=== PATIENT | female | born 1955 | race Caucasian/White ===

== ENCOUNTER 2023-12-15 00:34 | Emergency (ER) | payer MEDICARE ==
[2023-12-15] MEDS ORDERED: Ondansetron ODT 4 MG TAB ONE (01:03)
[2023-12-15] MEDS ORDERED: HYDROcodone/Acetaminophen 5/325 mg Tablet ONE (01:03)
== END 2023-12-15 03:56 | disposition home or self-care (01) ==
LOC: CSHERS 00:34
DX: L03.90 Cellulitis, unspecified (principal); I10 Essential (primary) hypertension; F17.210 Nicotine dependence, cigarettes, uncomplicated
CPT/HCPCS: 99283; Q0162

== ENCOUNTER 2024-02-01 04:42 | Inpatient (IN) | payer OTHER ==
[2024-02-01 06:48] VITALS: BMI 32.3
[2024-02-01] MEDS: Lactated Ringer's 1,000 ML IV SCH (08:16)
[2024-02-01] MEDS: Multivitamin W/ Minerals 1 TAB PO SCH (10:53)
[2024-02-01] MEDS: Flecainide 50 MG TAB PO SCH (10:53)
[2024-02-01] MEDS: Pantoprazole DR 40 MG TAB PO SCH (10:53)
[2024-02-01] MEDS: Apixaban 5 MG TAB PO SCH (10:54)
[2024-02-01] MEDS: Cefepime 2 GM in Sodium Chloride 0.9% 100 ML IVPB SCH (10:54)
[2024-02-01] MEDS: Polyethylene Glycol 3350 17 GM Packet PO SCH (10:56)
[2024-02-01] MEDS: Morphine 4 MG/ML VIAL SLOW IVP PRN (11:31)
[2024-02-01 12:11] VITALS: BMI 32.3
[2024-02-01] MEDS: Promethazine HCl 12.5 MG in Sodium Chloride 0.9% 50 ML IVPB PRN (20:13)
[2024-02-02] MEDS: Ondansetron PF 4 MG/2 ML Vial IVP PRN (05:04)
[2024-02-02 05:22] LABS: #Basophils 0.01 10x3/uL (0.0-0.2); #Eosinphils 0.12 10x3/uL (0.0-0.5); #Neutrophils 2.32 10x3/uL (1.5-8.4); %Basophils 0.3 % (0.0-2.0); %Eosinophils 3.1 % (0.0-6.0); %Lymphocytes 28.3 % (18.0-47.0); %Monocytes 7.8 % (0.0-10.0); %Neutrophils 60.2 % (40.0-75.0); Anion Gap 17 mmol/L (10-20); BUN (Urea Nitrogen) 15 mg/dL (9.8-20.1); Calc. Creatinine Clearance 74 mL/min (70-130); Carbon Dioxide 25 mmol/L (23-31); Chloride 100 mmol/L (98-107); Estimated GFR 59; Glucose 68 mg/dL (80-115); Hematocrit 31.6 % (34.9-44.5); Hemoglobin 10.8 g/dL (12.0-15.5); Mean Corpuscular HGB CONC 34.2 g/dL (32.0-36.0); Mean Corpuscular Hemoglobin 32.6 pg (27.0-33.0); Mean Corpuscular Volume 95.5 fL (81.6-98.3); Mean Platelet Volume 10.2 fL (7.4-10.4); Platelet Count 153 10x3/uL (150-450); Potassium 3.4 mmol/L (3.5-5.1); RBC Distribution Width 17.1 % (11.5-14.5); Red Blood Cell (RBC) Count 3.31 10x6/uL (3.90-5.03); Sodium 139 mmol/L (136-145); White Blood Cell (WBC) Count 3.9 10x3/uL (3.5-10.5)
[2024-02-02] MEDS: Dextrose 5%-Lactated Ringers 1,000 ML IV SCH (05:54)
[2024-02-02 06:16] LABS: Calcium 5.8 mg/dL (7.8-10.44); Magnesium Less than 0.6 mg/dL (1.6-2.6)
[2024-02-02] MEDS: Potassium Chloride 20 MEQ TAB PO SCH (06:38)
[2024-02-02] MEDS: Calcium Gluc 4.6 MEQ/10 ML (100 MG/ML) SLOW IVP SCH (06:38)
[2024-02-02] MEDS: Magnesium 2 GM/50 ML(in water) 2 GM in Premix 1 BAG IVPB SCH ×3 (06:39→13:13)
[2024-02-02 10:19] LABS: Albumin 2.4 g/dL (3.4-4.8); Anion Gap 17 mmol/L (10-20); BUN (Urea Nitrogen) 14 mg/dL (9.8-20.1); Calc. Creatinine Clearance 67 mL/min (70-130); Carbon Dioxide 26 mmol/L (23-31); Chloride 100 mmol/L (98-107); Estimated GFR 52; Glucose 72 mg/dL (80-115); Potassium 3.1 mmol/L (3.5-5.1); Sodium 140 mmol/L (136-145)
[2024-02-02 10:26] LABS: Calcium 6.3 mg/dL (7.8-10.44)
[2024-02-02] MEDS: Polyethylene Glycol 3350 17 GM Packet PO SCH (10:40)
[2024-02-02] MEDS: Calcium Gluconate 4.6 MEQ in Sodium Chloride 0.9% 100 ML IVPB SCH (13:08)
[2024-02-02 15:51] LABS: Anion Gap 17 mmol/L (10-20); BUN (Urea Nitrogen) 13 mg/dL (9.8-20.1); Calc. Creatinine Clearance 70 mL/min (70-130); Carbon Dioxide 24 mmol/L (23-31); Chloride 99 mmol/L (98-107); Estimated GFR 55; Glucose 90 mg/dL (80-115); Magnesium 2.5 mg/dL (1.6-2.6); Sodium 137 mmol/L (136-145)
[2024-02-02 16:59] LABS: Calcium 6.7 mg/dL (7.8-10.44)
[2024-02-03] MEDS: Acetaminophen 325 MG TAB PO PRN (00:06)
[2024-02-03 05:09] LABS: #Basophils 0.02 10x3/uL (0.0-0.2); #Eosinphils 0.11 10x3/uL (0.0-0.5); #Monocytes 0.27 10x3/uL (0.0-1.1); #Neutrophils 3.68 10x3/uL (1.5-8.4); %Basophils 0.4 % (0.0-2.0); %Eosinophils 2.3 % (0.0-6.0); %Lymphocytes 13.7 % (18.0-47.0); %Monocytes 5.7 % (0.0-10.0); %Neutrophils 77.7 % (40.0-75.0); Hematocrit 35.1 % (34.9-44.5); Hemoglobin 11.9 g/dL (12.0-15.5); Mean Corpuscular HGB CONC 33.9 g/dL (32.0-36.0); Mean Corpuscular Hemoglobin 32.7 pg (27.0-33.0); Mean Corpuscular Volume 96.4 fL (81.6-98.3); Platelet Count 145 10x3/uL (150-450); RBC Distribution Width 16.6 % (11.5-14.5); Red Blood Cell (RBC) Count 3.64 10x6/uL (3.90-5.03); White Blood Cell (WBC) Count 4.7 10x3/uL (3.5-10.5)
[2024-02-03 05:18] LABS: ALT (SGPT) 37 U/L (8-55); AST (SGOT) 50 U/L (5-34); Albumin 2.5 g/dL (3.4-4.8); Alkaline Phosphatase 114 U/L (40-110); Anion Gap 14 mmol/L (10-20); BUN (Urea Nitrogen) 12 mg/dL (9.8-20.1); Bilirubin, Total 1.2 mg/dL (0.2-1.2); Calc. Creatinine Clearance 81 mL/min (70-130); Carbon Dioxide 27 mmol/L (23-31); Chloride 99 mmol/L (98-107); Estimated GFR 66; Globulin 3.3 g/dL (2.4-3.5); Glucose 84 mg/dL (80-115); Phosphorus 3.3 mg/dL (2.3-4.7); Potassium 3.3 mmol/L (3.5-5.1); Protein, Total 5.8 g/dL (5.8-8.1); Sodium 137 mmol/L (136-145)
[2024-02-03 05:25] LABS: Calcium 6.8 mg/dL (7.8-10.44); Critical Call Chemistry OS.YZ@0353
[2024-02-03] MEDS: Potassium Chloride 20 MEQ TAB PO SCH (08:35)
[2024-02-03 08:54] VITALS: BP 129/67; TEMP 99.3
== END 2024-02-03 12:32 | disposition home or self-care (01) | DRG 872 ==
LOC: CSHTELE 04:42
PROVIDERS: ADMIT Student in an Organized Health Care Education/Training Program; ATTEND Family Medicine
DX: A41.9 Sepsis, unspecified organism (principal); E87.20 Acidosis, unspecified; N39.0 Urinary tract infection, site not specified; I82.402 Acute embolism and thrombosis of unspecified deep veins of left lower extremity; R65.20 Severe sepsis without septic shock; E86.0 Dehydration; R53.81 Other malaise; E87.8 Other disorders of electrolyte and fluid balance, not elsewhere classified; N28.89 Other specified disorders of kidney and ureter; E88.09 Other disorders of plasma-protein metabolism, not elsewhere classified; I10 Essential (primary) hypertension; I48.0 Paroxysmal atrial fibrillation; Z93.2 Ileostomy status; Z91.018 Allergy to other foods; Z79.01 Long term (current) use of anticoagulants; Z79.899 Other long term (current) drug therapy; Z98.890 Other specified postprocedural states
CPT/HCPCS: 36415; 74018; 80048; 80053; 82040; 82330; 83735; 84100; 85025; 86140; 87081; 87086; 87324; 87449; 97139; J0612; J0692; J2272; J2405; J2550; J3475; J7120

== ENCOUNTER 2024-05-15 16:27 | Inpatient (IN) | payer OTHER, MEDICAID ==
[2024-05-15 18:00] LABS: #Basophils 0.01 10x3/uL (0.0-0.2); #Eosinophils 0.04 10x3/uL (0.0-0.5); #Monocytes 0.68 10x3/uL (0.0-1.1); %Basophils 0.1 % (0.0-2.0); %Eosinophils 0.5 % (0.0-6.0); %Lymphocytes 16.4 % (18.0-47.0); %Monocytes 8.3 % (0.0-10.0); %Neutrophils 74.6 % (40.0-75.0); Hematocrit 36.2 % (34.9-44.5); Hemoglobin 11.7 g/dL (12.0-15.5); Mean Corpuscular HGB CONC 32.3 g/dL (32.0-36.0); Mean Corpuscular Hemoglobin 27.8 pg (27.0-33.0); Mean Platelet Volume 10.7 fL (7.4-10.4); Platelet Count 182 10x3/uL (150-450); RBC Distribution Width 15.2 % (11.5-14.5); Red Blood Cell (RBC) Count 4.21 10x6/uL (3.90-5.03); White Blood Cell (WBC) Count 8.2 10x3/uL (3.5-10.5)
[2024-05-15 18:07] LABS: ALT (SGPT) 59 U/L (8-55); AST (SGOT) 56 U/L (5-34); Alkaline Phosphatase 106 U/L (40-110); BUN (Urea Nitrogen) 90 mg/dL (9.8-20.1); Bilirubin, Total 1.1 mg/dL (0.2-1.2); Calc. Creatinine Clearance 0 mL/min (70-130); Calcium 9.6 mg/dL (7.8-10.44); Estimated GFR 45; Globulin 5.2 g/dL (2.4-3.5); Glucose 135 mg/dL (80-115); Protein, Total 8.2 g/dL (5.8-8.1)
[2024-05-15 18:10] LABS: Troponin I 0.039 ng/mL (< 0.028)
[2024-05-15 18:11] LABS: Carbon Dioxide Greater than 37 mmol/L (23-31); Chloride 77 mmol/L (98-107); Critical Call Chemistry SJOS.OD AT 1809; Potassium 2.4 mmol/L (3.5-5.1); Sodium 132 mmol/L (136-145)
[2024-05-15 18:14] LABS: Anion Gap 25 mmol/L (10-20)
[2024-05-15] MEDS ORDERED: Potassium Chloride 20 MEQ TAB ONE (18:23)
[2024-05-15] MEDS ORDERED: Morphine 4 MG/ML VIAL ONE (18:33)
[2024-05-15 18:53] LABS: Magnesium 2.6 mg/dL (1.6-2.6)
[2024-05-15] MEDS ORDERED: Acetaminophen 650 MG Suppository PR PRN (19:08)
[2024-05-15] MEDS: Sodium Chloride 0.9% 1,000 ML IV SCH (20:00)
[2024-05-15] MEDS ORDERED: D5 1/2 NS w/20 mEq KCL 1,000 ML ONE (20:45)
[2024-05-15] MEDS: Acetaminophen 325 MG TAB PO PRN (21:00)
[2024-05-15] MEDS ORDERED: Acetaminophen 325 MG TAB ONE (21:06)
[2024-05-15 22:32] LABS: Troponin I 0.022 ng/mL (< 0.028)
[2024-05-15] MEDS: Cholestyramine/Aspartame 4 gm Packet PO SCH (23:15)
[2024-05-16] MEDS ORDERED: Diphenoxylate HCl/Atropine Tablet ONE ×4 (00:46→15:37)
[2024-05-16] MEDS: Diphenoxylate HCl/Atropine Tablet PO SCH ×2 (00:50→21:40)
[2024-05-16] MEDS ORDERED: traMADol HCl 50 MG TAB ONE ×2 (01:49→09:38)
[2024-05-16] MEDS: traMADol HCl 50 MG TAB PO PRN (01:59)
[2024-05-16 03:45] LABS: Platelet Count 122 10x3/uL (150-450)
[2024-05-16 03:46] LABS: #Basophils 0.02 10x3/uL (0.0-0.2); #Eosinophils 0.04 10x3/uL (0.0-0.5); #Monocytes 0.41 10x3/uL (0.0-1.1); %Basophils 0.4 % (0.0-2.0); %Eosinophils 0.9 % (0.0-6.0); %Lymphocytes 18.6 % (18.0-47.0); %Monocytes 9.1 % (0.0-10.0); %Neutrophils 70.8 % (40.0-75.0); Hematocrit 25.5 % (34.9-44.5); Hemoglobin 8.4 g/dL (12.0-15.5); Mean Corpuscular HGB CONC 32.9 g/dL (32.0-36.0); Mean Corpuscular Hemoglobin 29.1 pg (27.0-33.0); Mean Corpuscular Volume 88.2 fL (81.6-98.3); Mean Platelet Volume 10.4 fL (7.4-10.4); RBC Distribution Width 15.4 % (11.5-14.5); Red Blood Cell (RBC) Count 2.89 10x6/uL (3.90-5.03); White Blood Cell (WBC) Count 4.5 10x3/uL (3.5-10.5)
[2024-05-16 04:00] LABS: Troponin I 0.024 ng/mL (< 0.028)
[2024-05-16 04:17] LABS: ALT (SGPT) 42 U/L (8-55); AST (SGOT) 41 U/L (5-34); Albumin 2.1 g/dL (3.4-4.8); Alkaline Phosphatase 81 U/L (40-110); Anion Gap 12 mmol/L (10-20); BUN (Urea Nitrogen) 63 mg/dL (9.8-20.1); Bilirubin, Total 0.7 mg/dL (0.2-1.2); Calc. Creatinine Clearance 0 mL/min (70-130); Calcium 7.4 mg/dL (7.8-10.44); Carbon Dioxide 33 mmol/L (23-31); Chloride 88 mmol/L (98-107); Estimated GFR 69; Globulin 3.4 g/dL (2.4-3.5); Glucose 260 mg/dL (80-115); Magnesium 1.9 mg/dL (1.6-2.6); Phosphorus 2.5 mg/dL (2.3-4.7); Potassium 2.8 mmol/L (3.5-5.1); Protein, Total 5.5 g/dL (5.8-8.1); Sodium 130 mmol/L (136-145)
[2024-05-16] MEDS ORDERED: Electrolyte Replacement Protocol 1 EACH FS SCH (08:45)
[2024-05-16] MEDS ORDERED: Aspirin Chewable 81 MG TAB ONE (08:57)
[2024-05-16] MEDS ORDERED: Apixaban 5 MG TAB ONE (08:58)
[2024-05-16] MEDS ORDERED: Loperamide HCl 2 MG CAP ONE (08:58)
[2024-05-16] MEDS ORDERED: Potassium Bicarbonate/Cit Ac 20 MEQ TAB ONE ×2 (08:58→15:36)
[2024-05-16] MEDS ORDERED: Pantoprazole 40 MG VIAL ONE (08:59)
[2024-05-16] MEDS ORDERED: Amiodarone 200 MG TAB ONE (08:59)
[2024-05-16] MEDS ORDERED: Magnesium 2 GM/50 ML BAG (IN WATER) ONE (08:59)
[2024-05-16] MEDS ORDERED: Acetaminophen 500 MG TAB ONE (09:23)
[2024-05-16] MEDS: Aspirin 81 mg Enteric Coated Tablet PO SCH (09:57)
[2024-05-16] MEDS: Magnesium 2 GM/50 ML(in water) 2 GM in Premix 1 BAG IVPB SCH (10:58)
[2024-05-16] MEDS: Apixaban 5 MG TAB PO SCH (12:57)
[2024-05-16] MEDS: Loperamide HCl 2 MG CAP PO SCH (12:57)
[2024-05-16] MEDS: Pantoprazole DR 40 MG TAB PO SCH (12:58)
[2024-05-16] MEDS: Potassium Bicarbonate/Cit Ac 20 MEQ TAB PER TUBE SCH (12:58)
[2024-05-16] MEDS: Amiodarone 200 MG TAB PO SCH (12:59)
[2024-05-16] MEDS ORDERED: Morphine 2 MG/ML VIAL ONE (15:31)
[2024-05-16] MEDS: Morphine 2 MG/ML VIAL SLOW IVP PRN (15:44)
[2024-05-16] MEDS: Magnesium Oxide 400 MG TAB PO SCH (18:34)
[2024-05-16] MEDS: Sodium Chloride 0.9% 1,000 ML IV SCH (22:00)
[2024-05-17 01:49] LABS: Campy jejuni + coli by PCR Negative (Negative); STEC Shiga Toxin 1+2 Negative (Negative); Salmonella spp. by PCR Negative (Negative); Shigella spp + EIEC by PCR Negative (Negative)
[2024-05-17 04:49] LABS: Magnesium 2.1 mg/dL (1.6-2.6); Potassium 2.9 mmol/L (3.5-5.1)
[2024-05-17] MEDS: Potassium Chloride 20 MEQ in Premix 1 BAG IVPB SCH (06:39)
[2024-05-17 09:35] LABS: Anion Gap 12 mmol/L (10-20); BUN (Urea Nitrogen) 24 mg/dL (9.8-20.1); Calc. Creatinine Clearance 0 mL/min (70-130); Calcium 7.2 mg/dL (7.8-10.44); Carbon Dioxide 26 mmol/L (23-31); Chloride 104 mmol/L (98-107); Estimated GFR 88; Glucose 127 mg/dL (80-115); Phosphorus 1.7 mg/dL (2.3-4.7); Potassium 4.9 mmol/L (3.5-5.1); Sodium 137 mmol/L (136-145)
[2024-05-17] MEDS ORDERED: Electrolyte Replacement Protocol FS PRN (10:30)
[2024-05-17] MEDS: Potassium Phosphate 15 MMOL in Sodium Chloride 0.9% 100 ML IVPB SCH (11:24)
[2024-05-17] MEDS: Pancrelipase DR 12,000 1 CAP PO SCH (18:15)
[2024-05-17] MEDS: Morphine 4 MG/ML VIAL SLOW IVP PRN (18:15)
[2024-05-17] MEDS ORDERED: HYDROcodone/Acetaminophen 5/325 mg Tablet PO PRN (18:41)
[2024-05-17 19:54] LABS: Potassium 4.2 mmol/L (3.5-5.1)
[2024-05-18 04:25] LABS: INR-International Normal Ratio 1.1; PTT 25.5 sec (22.0-33.0)
[2024-05-18 04:35] LABS: ALT (SGPT) 43 U/L (8-55); AST (SGOT) 36 U/L (5-34); Albumin 2.1 g/dL (3.4-4.8); Alkaline Phosphatase 90 U/L (40-110); Anion Gap 12 mmol/L (10-20); BUN (Urea Nitrogen) 19 mg/dL (9.8-20.1); Bilirubin, Total 0.8 mg/dL (0.2-1.2); Calc. Creatinine Clearance 0 mL/min (70-130); Calcium 7.4 mg/dL (7.8-10.44); Carbon Dioxide 23 mmol/L (23-31); Chloride 105 mmol/L (98-107); Cholesterol 95 mg/dl (< 200 Desired); Estimated GFR 84; Glucose 108 mg/dL (80-115); HDL Cholesterol 32 mg/dL (>60 Neg Risk); LDL Cholesterol, Calculated 47 mg/dL; Magnesium 1.7 mg/dL (1.6-2.6); Phosphorus 1.8 mg/dL (2.3-4.7); Potassium 3.7 mmol/L (3.5-5.1); Protein, Total 5.1 g/dL (5.8-8.1); Sodium 136 mmol/L (136-145); Triglycerides 81 mg/dL (Less than 150)
[2024-05-18] MEDS: Magnesium 2 GM/50 ML(in water) 2 GM in Premix 1 BAG IVPB SCH (09:31)
[2024-05-18] MEDS: Potassium Phosphate 22 MMOL in Sodium Chloride 0.9% 250 ML 250 ML IVPB SCH (11:07)
[2024-05-18] MEDS: Fat Emulsion 250 ML IVPB SCH (13:52)
[2024-05-18] MEDS: MULTIVITAMINS IV SCH (14:01)
[2024-05-18] MEDS: D15W AA IV SCH (14:01)
[2024-05-18] MEDS: [UNRECOGNIZED DRUG - OTHER] IV SCH (14:01)
[2024-05-18] MEDS: MULTITRACE IV SCH (14:01)
[2024-05-18] MEDS: FAT EMULSION PER TUBE SCH (14:39)
[2024-05-19 05:32] LABS: Anion Gap 8 mmol/L (10-20); BUN (Urea Nitrogen) 18 mg/dL (9.8-20.1); Calc. Creatinine Clearance 0 mL/min (70-130); Calcium 7.6 mg/dL (7.8-10.44); Carbon Dioxide 22 mmol/L (23-31); Chloride 111 mmol/L (98-107); Estimated GFR 94; Glucose 109 mg/dL (80-115); Magnesium 1.7 mg/dL (1.6-2.6); Phosphorus 2.3 mg/dL (2.3-4.7); Potassium 4.4 mmol/L (3.5-5.1); Sodium 137 mmol/L (136-145)
[2024-05-19 07:43] VITALS: TEMP 98.4
[2024-05-19] MEDS: Magnesium 2 GM/50 ML(in water) 2 GM in Premix 1 BAG IVPB SCH (09:36)
[2024-05-19 17:12] VITALS: BP 132/44
== END 2024-05-19 19:01 | disposition home or self-care (01) | DRG 641 ==
LOC: SUATTDRO 16:27 → EEVIPCON 16:27 → CSHERS 16:27 → CSHERHOLD 19:03 → CSHTELE 05-16 18:31
PROVIDERS: ADMIT Family Medicine; ATTEND Family Medicine
PROC: 3E0336Z Introduction of Nutritional Substance into Peripheral Vein, Percutaneous Approach (ICD-10-PCS; principal; 2024-05-15)
DX: E87.6 Hypokalemia (principal); N17.9 Acute kidney failure, unspecified; I24.89 Other forms of acute ischemic heart disease; K90.829 Short bowel syndrome, unspecified; K63.2 Fistula of intestine; I10 Essential (primary) hypertension; I48.91 Unspecified atrial fibrillation; E86.0 Dehydration; K57.90 Diverticulosis of intestine, part unspecified, without perforation or abscess without bleeding; E83.42 Hypomagnesemia; E83.39 Other disorders of phosphorus metabolism; Z90.49 Acquired absence of other specified parts of digestive tract
CPT/HCPCS: 36415; 71045; 74018; 80048; 80053; 80061; 83735; 83880; 84100; 84132; 84134; 84443; 84484; 85025; 85610; 85730; 87505; 93005; 94760; 94762; 96374; 97139; J2272; J2470; J3475; J3480; J7030; J7050